=== PATIENT | male | born 1955 | race Hispanic/Latino ===

== ENCOUNTER → 2023-03-06 | Outpatient (CLI) | payer OTHER | END | disposition home or self-care (01) | LOC: RAH 14:11 | PROVIDERS: ATTEND Internal Medicine | DX: I10 Essential (primary) hypertension (principal) | CPT/HCPCS: 71046 ==

== ENCOUNTER → 2023-12-04 | Outpatient (CLI) | payer OTHER | END | disposition home or self-care (01) | LOC: RAH 15:11 | PROVIDERS: ATTEND Internal Medicine | DX: M19.079 Primary osteoarthritis, unspecified ankle and foot (principal) | CPT/HCPCS: 73600 ==

== ENCOUNTER 2024-06-17 14:18 | Emergency (ER) | payer OTHER ==
[~2024-06-17] VITALS: Ht 177.8 cm; Wt 65.8 kg
--- NOTE | 2024-06-17 14:41 | ERN ---
General Chief Complaint: Generalized Body Aches Stated Complaint: BODY ACHES Time Seen by MD: 14:23 History of Present Illness Initial Comments 69-year-old male brought in by EMS from [facility] does for generalized body aches. He reports he has a history of arthritis and fibromyalgia. Takes chronic oxycodone. He reports that he ran out now he is in pain all over. When I ask him where exactly his pain is he says his entire body. He reports he feels dizzy and weak. He denies any fevers or vomiting. Denies any chest pain. Denies shortness of breath. Denies diarrhea. He immediately is asking for an opiate pain medications on arrival to the ER. Allergies: Uncoded Allergies: ASPIRIN\ (Allergy, Unknown, 06/17/24) Past Medical History Past Medical History: Arthritis, Other Medical History Other: FIBROMYALGIA Past Surgical History: Other Surgical History Other: CARPAL TUNNEL, L KNEE. ROS Dictation CONSTITUTIONAL: pain all over HEAD/FACE: No signs of trauma. EENT: No eye pain, no blurred vision, no tearing, no double vision, no ear pain, no ear discharge, no nose pain, no nasal congestion, no throat pain, no throat swelling, no mouth pain. RESPIRATORY: No cough, no orthopnea, no SOB, no stridor, no wheezing. CARDIOVASCULAR: No chest pain, no edema, no palpitations, no syncope. GASTROINTESTINAL/ABDOMINAL: No abdominal pain, no constipation, no diarrhea, no nausea, no vomiting. GENITOURINARY: No abnormal discharge, no dysuria, no frequent urination, no hematuria. No complaints of pain in the genitals. MUSCULOSKELETAL: No back pain, no gout, no joint pain, no joint swelling, no muscle pain, no muscle stiffness, no neck pain. INTEGUMENTARY: No change in color, no change in hair/nails, no dryness, no lesion, no lumps, no rash. NEUROLOGICAL/PSYCH: No anxiety, not depressed, no emotional problem, no headache, no numbness, no pre-existing deficit, no history of seizures, no tremors, no weakness. HEMATOLOGIC/LYMPHATIC: Not anemic, no history of blood clots, no apparent bleeding, no bruising, glands not swollen. All Systems Negative, Except as Noted. Physical Exam Physical Exam Dictation VITAL SIGNS: Reviewed. GENERAL APPEARANCE: Alert, oriented x3, no acute distress HEAD AND FACE: Non-traumatic. EYES: PERRL, pink conjunctivas, eyelid no trauma, anterior chamber clear. EARS: Pinnas intact and no signs of trauma or erythema. Ear canals clear and no discharge. TMs no erythema. NOSE: No discharge, no bleeding. OROPHARYNX: Mouth normal, teeth no caries, tongue pink. Pharynx clear, no erythema. Tonsils no exudates, no abscesses noted. Mucous membrane moist. NECK: Supple, non-tender, no thyromegaly, no masses, no JVD, no bruits. BREAST: Deferred. CHEST: No tenderness, no crepitus, no paradoxical movement, no retractions. LUNGS: Clear, well-ventilated, symmetric, no rales, no wheezing, no rhonchi, no stridor, good breath sounds bilaterally. HEART: Regular rate, regular rhythm, no murmur, no gallops. VASCULAR: No peripheral edema. ABDOMEN: Soft, positive bowel sounds, nondistended, no guarding, nontender, no rebound, no masses no hepatomegaly, no splenomegaly, no Dietz's sign, no hernias. RECTAL: Deferred. GENITAL: Deferred. NEUROLOGICAL: Normal speech, gross motor function intact, gross sensory function intact. MUSCULOSKELETAL: Neck nontender, full range of motion, back nontender, full range of motion. EXTREMITIES: Nontender, full range of motion. SKIN: Color pink, dry, no turgor, no rash, no lacerations, no abrasions, no contusions. LYMPHATICS: Deferred. Results Laboratory and Microbiology Lab and Micro Result Laboratory Tests Test 06/17/24 14:54 06/17/24 14:55 White Blood Count 7.1 K/uL (4.8-10.8) Red Blood Count 4.84 MIL/uL (4.50-6.20) Hemoglobin 15.8 g/dL (14.0-18.0) Hematocrit 44.6 % (42-54) Mean Corpuscular Volume 92.1 fL (79-99) Mean Corpuscular Hemoglobin 32.6 pg (27.0-33.0) Mean Corpuscular Hemoglobin Concent 35.4 g/dL (32.0-36.0) Red Cell Distribution Width 13.3 % (11.0-15.5) Platelet Count 355 K/uL (130-400) Mean Platelet Volume 11.8 fL (7.5-10.5) H Immature Granulocyte % (Auto) 0.4 % (0-1) Neutrophils (%) (Auto) 81.9 % (40.0-77.0) H Lymphocytes (%) (Auto) 12.8 % (21.0-51.0) L Monocytes (%) (Auto) 4.3 % (3.0-13.0) Eosinophils (%) (Auto) 0.3 % (0.0-8.0) Basophils (%) (Auto) 0.3 % (0.0-5.0) Neutrophils # (Auto) 5.8 K/uL (1.8-7.7) Lymphocytes # (Auto) 0.9 K/uL (1.0-4.8) L Monocytes # (Auto) 0.3 K/uL (0.1-1.0) Eosinophils # (Auto) 0.02 K/uL (0.00-0.70) Basophils # (Auto) 0.02 K/uL (0.00-0.20) Absolute Immature Granulocyte (auto 0.03 K/uL (0-1) Nucleated Red Blood Cells 0.0 % (0.0-0.19) Sodium Level 136 mmol/L (136-145) Potassium Level 3.7 mmol/L (3.5-5.1) Chloride Level 97 mmol/L (101-111) L Carbon Dioxide Level 23 mmol/L (21-32) Blood Urea Nitrogen 22 mg/dL (7-18) H Creatinine 1.2 mg/dL (0.5-1.3) Glomerular Filtration Rate Calc 65 mL/min (>90) Random Glucose 105 mg/dL (70-105) Total Calcium 9.4 mg/dL (8.5-10.1) Total Bilirubin 1.2 mg/dL (0.2-1.0) H Direct Bilirubin 0.6 mg/dL (0.0-0.3) H Aspartate Amino Transf (AST/SGOT) 23 U/L (10-37) Alanine Aminotransferase (ALT/SGPT) 25 U/L (12-78) Alkaline Phosphatase 132 U/L (50-136) Total Creatine Kinase 43 U/L (21-232) Troponin I High Sensitivity 58.5 ng/L (4-75) Total Protein 7.3 g/dL (6.0-8.3) Albumin 3.7 g/dL (3.5-5.0) Lipase 67 U/L (16-77) Influenza Type A Antigen Negative For Type A Influenza Type B Antigen Negative For Type B SARS-CoV-2 Antigen (Rapid) PRESUMPTIVE NEGATIVE MDM CC: Generalized body aches Historian: Patient Comorbidities: Arthritis, fibromyalgia, chronic oxycodone use Limitations by social determinants of health: None Differential diagnosis: Flu, fibromyalgia, arthritis, drug-seeking behavior, other. vital signs: Stable, remained stable in the ER Labs ( independently ordered and interpreted by me ): CBC is normal. Metabolic panel is normal. Liver enzymes normal. Lipase normal. CK normal. Troponin normal. Flu and SARS negative. No imaging indicated. Treatment in ER: IV Toradol, p.o. Tylenol. I do not see any objective reason to give the patient opiates. He continually requests opiates. On re-evaluation he reports that his pain has a 10/10 in his all over. This point in time I think the patient was drug seeking. I do not see any objective medical abnormalities at this time. He was stable vital signs normal lab work. Normal physical exam. We will discharge the patient to follow up as an outpatient. ED Course Orders Procedure Category Date Status Time Cardiac Panel LAB 06/17/24 Complete 14:35 Cbc With Differential LAB 06/17/24 Complete 14:35 Basic Metabolic Panel LAB 06/17/24 Complete 14:35 Lipase LAB 06/17/24 Complete 14:35 Hepatic Function Panel LAB 06/17/24 Complete 14:35 12 Lead Ekg Tracing- EKG 06/17/24 Complete Technical 14:35 Covid19 (Sars Antigen LAB 06/17/24 Complete Rapid) 14:35 Influenza Type A & B, LAB 06/17/24 Complete Rapid 14:35 Ketorolac PHA 06/17/24 Complete Tromethamine 15mg/Ml 15:00 Acetaminophen 500mg PHA 06/17/24 Complete Tab (Tylenol 500mg T 15:00 Current Medications Medications (Trade) Dose Ordered Sig/Fidencio Route PRN Reason Start Time Stop Time Status Last Admin Dose Admin Acetaminophen (TYLenol 500MG TAB) 1,000 mg ONCE ONCE PO 06/17/24 15:00 06/17/24 15:01 DC 06/17/24 15:01 Ketorolac Tromethamine (toRADol) 15 mg ONCE ONCE IV 06/17/24 15:00 06/17/24 15:01 DC 06/17/24 15:01 Vital Signs Date Time Temp Pulse Resp B/P (MAP) Pulse Ox O2 Delivery O2 Flow Rate FiO2 06/17/24 14:20 97.9 72 18 148/65 98 Room Air 0 DX & DISP Disposition: Discharge Departure Impression: Primary Impression: Generalized pain Condition: Stable Additional Instructions: Your workup is unremarkable. Your vital signs are stable. Your blood work is normal. You can take [id number] pain medications as needed (800 mg of ibuprofen or 1000 mg of Tylenol). Regarding your opiate prescriptions, I recommend that you follow up with the primary provider. Referrals: DEONTE BEATTY MD (PCP) JONY NAVARRETE DO Jun 17, 2024 14:41
--- NOTE | 2024-06-17 14:56 | EKG ---
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
[2024-06-17 15:00] LABS: BASOPHILS # (AUTO) 0.02 K/uL (0.00-0.20); BASOPHILS % (AUTO) 0.3 % (0.0-5.0); EOSINOPHILS # (AUTO) 0.02 K/uL (0.00-0.70); EOSINOPHILS % (AUTO) 0.3 % (0.0-8.0); HEMATOCRIT 44.6 % (42-54); IMMATURE GRANULOCYTE ABSOLUTE 0.03 K/uL (0-1); LYMPHOCYTES # (AUTO) 0.9 K/uL (1.0-4.8); LYMPHOCYTES % (AUTO) 12.8 % (21.0-51.0); MEAN CORPUSCULAR HEMOGLOBIN 32.6 pg (27.0-33.0); MEAN CORPUSCULAR HGB CONC 35.4 g/dL (32.0-36.0); MEAN CORPUSCULAR VOLUME 92.1 fL (79-99); MONOCYTES # (AUTO) 0.3 K/uL (0.1-1.0); MONOCYTES % (AUTO) 4.3 % (3.0-13.0); NEUTROPHILS # (AUTO) 5.8 K/uL (1.8-7.7); NEUTROPHILS % (AUTO) 81.9 % (40.0-77.0); PLATELET COUNT (AUTO) 355 K/uL (130-400); RED BLOOD CELL COUNT(AUTO) 4.84 MIL/uL (4.50-6.20); RED CELL DISTRIBUTION WIDTH 13.3 % (11.0-15.5); WHITE BLOOD COUNT (AUTO) 7.1 K/uL (4.8-10.8)
[2024-06-17] MEDS: ketOROlac 15MG/ML VIAL (15MG/ML) IV ONE (15:01)
[2024-06-17] MEDS: acetaMINOPHEN 500 MG TABLET PO ONE (15:01)
[2024-06-17 15:08] LABS: CREATININE 1.2 mg/dL (0.5-1.3); POTASSIUM 3.7 mmol/L (3.5-5.1)
[2024-06-17 15:15] LABS: ALBUMIN 3.7 g/dL (3.5-5.0); BILIRUBIN,DIRECT 0.6 mg/dL (0.0-0.3); BILIRUBIN,TOTAL 1.2 mg/dL (0.2-1.0); TOTAL PROTEIN, SERUM 7.3 g/dL (6.0-8.3)
[2024-06-17 15:20] LABS: COVID19 (SARS ANTIGEN RAPID) PRESUMPTIVE NEGATIVE (NEGATIVE); INFLUENZA TYPE A Negative For Type A (NEGATIVE); INFLUENZA TYPE B Negative For Type B (NEGATIVE)
--- NOTE | 2024-06-17 16:40 | NUR ---
CALLED [facility] TO SET UP TRANSPORT FOR PT.
--- NOTE | 2024-06-17 17:13 | NUR ---
[facility] BY TO SOUND RECORDING TECHNICIAN PT.
[2024-06-17 17:34] VITALS: BP 158/79; PULSE 78; RESP 18; TEMP 97; O2SAT 97
== END 2024-06-17 17:40 | disposition home or self-care (01) ==
LOC: EDH 14:18
DX: M79.10 Myalgia, unspecified site (principal); M19.90 Unspecified osteoarthritis, unspecified site; Z88.6 Allergy status to analgesic agent; Z20.822 Contact with and (suspected) exposure to COVID-19
CPT/HCPCS: 99284; 96374; 87426; 82550; 80076; 84484; 80048; 83690; 85025; 87804 ×2; 36415; 93005; J1885

== ENCOUNTER 2024-06-20 18:27 | Emergency (ER) | payer MEDICARE, OTHER ==
[~2024-06-20] VITALS: Ht 177.8 cm; Wt 68.0 kg
--- NOTE | 2024-06-20 18:54 | ERN ---
ED Note History of Present Illness Stated Complaint: WEAKNESS Chief Complaint: Weakness Time Seen by MD: 18:45 Dictation: PATIENT IS A 69-YEAR-OLD MALE COMING IN VIA EMS FROM [facility] WITH COMPLAINTS OF GENERALIZED BODY WEAKNESS AND PAIN ALL OVER HIS BODY. HE HAS A HISTORY OF ARTHRITIS AND FIBROMYALGIA STATES HE NORMALLY TAKES OXYCODONE HOWEVER, HE RAN OUT SEVERAL DAYS AGO AND IS LOOKING FOR A REFILL. HE WAS HERE ON 06/18 FOR THE SAME REQUEST AND WAS DENIED, TOLD TO SEE HIS PRIMARY CARE DOCTOR, . HE THEN SAID THE DR. BEATTY HAD TOLD HIM TO COME TO THE HOSPITAL AND HE WOULD SEE HIM IN THE EMERGENCY ROOM. Allergies: Uncoded Allergies: ASPIRIN\ (Allergy, Unknown, 06/17/24) Past Medical History Past Medical History: Arthritis, Other Additional Past Medical Hx: FIBROMYALGIA Surgical History: Other Surgical History Other: CARPAL TUNNEL RN Note Reviewed/Agreed w/PFSH: Yes Review of System Dictation CONSTITUTIONAL: NEGATIVE EXCEPT FOR HPI WEAKNESS HEAD/FACE: NEGATIVE EXCEPT FOR HPI EENT: NEGATIVE EXCEPT FOR HPI RESPIRATORY: NEGATIVE EXCEPT FOR HPI GASTROINTESTINAL/ABDOMINAL: NEGATIVE EXCEPT FOR HPI GENITOURINARY: NEGATIVE EXCEPT FOR HPI MUSCULOSKELETAL: NEGATIVE EXCEPT FOR HPI DIFFUSE PAIN BILATERALLY INTEGUMENTARY: NEGATIVE EXCEPT FOR HPI NEUROLOGICAL/PSYCH: NEGATIVE EXCEPT FOR HPI HEMATOLOGIC/LYMPHATIC: NEGATIVE EXCEPT FOR HPI ALL SYSTEMS NEGATIVE, EXCEPT NOTED ABOVE. 13 POINT REVIEW OF SYSTEMS ASSESSED AND ALL NEGATIVE EXCEPT FOR ABOVE. Initial Vital Sign VS Vital Signs Date Time Temp Pulse Resp B/P (MAP) Pulse Ox O2 Delivery O2 Flow Rate FiO2 06/20/24 18:29 97.7 54 16 186/77 97 Room Air 0 Physical Exam Dictation VITAL SIGNS REVIEWED GENERAL APPEARANCE: ALERT, ORIENTED X 3, MODERATE ACUTE DISTRESS, WELL DEVELOPED, NOURISHED. HEAD AND FACE: NON-TRAUMATIC. EYES: PERRL, PINK CONJUNCTIVAS, EYELID NO TRAUMA, ANTERIOR CHAMBER WITH ARCUS SENILIS. EARS: PINNAS INTACT AND NO SIGNS OF TRAUMA OR ERYTHEMA EAR CANALS CLEAR AND NO DISCHARGE TM NO ERYTHEMA NOSE: NO DISCHARGE, NO BLEEDING. OROPHARYNX: MOUTH NORMAL, TONGUE PINK, PHARYNX CLEAR,NO ERYTHEMA, TONSILS NO EXUDATES, NO ABSCESSES NOTED, MUCOUS MEMBRANE MOIST NECK: SUPPLE, NON-TENDER, NO THYROMEGALY, NO MASSES, NO JVD, NO BRUITS BREAST:DEFERRED CHEST:NO TENDERNESS, NO CREPITUS, NO PARADOXICAL MOVEMENT, NO RETRACTIONS LUNGS:CLEAR, WELL-VENTILATED, SYMMETRIC, NO RALES, NO WHEEZING, NO RHONCHI, NO STRIDOR, GOOD BREATH SOUNDS BILATERALLY HEART: REGULAR RATE, REGULAR RHYTHM, NO MURMUR, NO GALLOPS VASCULAR: NO PERIPHERAL EDEMA, ABDOMEN: SOFT, POSITIVE BOWEL SOUNDS, NONDISTENDED, NO GUARDING, NONTENDER, NO REBOUND, NO MASSES NO HEPATOMEGALY, NO SPLENOMEGALY, NO GOODWIN'S SIGN, NO HERNIAS. RECTAL: DEFERRED GENITAL: DEFERRED NEUROLOGICAL: NORMAL SPEECH, MOTOR FUNCTION INTACT, SENSORY FUNCTION INTACT MUSCULOSKELETAL: NECK NONTENDER, FULL RANGE OF MOTION, BACK NONTENDER, FULL RANGE OF MOTION, EXTREMITIES: PATIENT HAS BILATERAL JOINT PAIN TO NECK SHOULDERS ELBOWS WRIST HIPS KNEES ANKLES ETC. SKIN: COLOR PINK, DRY, NO TURGOR, NO RASH, NO LACERATIONS, NO ABRASIONS, NO CONTUSIONS. LYMPHATIC: DEFERRED Results (Laboratory/Radiology) Labs Reviewed?: Yes ED Course ED Course Vital Signs Date Time Temp Pulse Resp B/P (MAP) Pulse Ox O2 Delivery O2 Flow Rate FiO2 06/20/24 18:29 97.7 54 16 186/77 97 Room Air 0 1845/CALLED DR IBRAHIM AND LEFT A VOICEMAIL FOR HIM TO CALL ME BACK. HE IS COVERING FOR . 1909 SPOKE WITH , HE SAID HE IS NOT ABLE TO PROVIDE ANY NARCOTICS AND THAT HE REFERRED PATIENT BACK TO . HE SAID UNTIL PATIENT TO SEE HIM IN THE MORNING. Medical Decision Making MDM MEDICAL DISCHARGE MAKING BASED ON EVALUATION OF PAIN PATIENT GIVEN TORADOL 60 MG IM TOLD TO FOLLOW BACK UP WITH HIS PRIMARY CARE DOCTOR, TOMORROW FOR PRESCRIPTION FOR OXYCODONE DX & DISP Disposition: Discharge Departure Impression: Primary Impression: Generalized pain Condition: Stable Additional Instructions: FOLLOW-UP WITH PRIMARY CARE PROVIDER IN 1 TO 2 DAYS. TAKE MEDICATIONS DIRECTED HERE IN THE EMERGENCY ROOM. OKAY TO CONTINUE HOME MEDICATIONS UNLESS OTHERWISE DISCUSSED DURING YOUR VISIT IN THE EMERGENCY ROOM TODAY. RETURN TO YOUR NEAREST EMERGENCY ROOM IF SYMPTOMS WORSEN OR IF THERE IS NO IMPROVEMENT. CALL 911 IF YOU NEED IMMEDIATE ASSISTANCE. TAKE TYLENOL OR MOTRIN [id number] NEEDED AND IF NO CONTRAINDICATIONS ARE PRESENT. INCREASE ORAL HYDRATION. A WOUND CULTURE OR URINE CULTURE WAS ORDERED HERE IN THE EMERGENCY ROOM DEPARTMENT PLEASE FOLLOW-UP WITH PRIMARY CARE PROVIDER AND ADVISE THEM TO GET REPEAT PORTS FROM OUR FACILITY. IF YOU HAD ANY RADHA WRAP/SPLINTS THAT WERE APPLIED HERE, PLEASE DO NOT REMOVE THEM UNTIL YOU SEE YOUR PRIMARY CARE OR SPECIALTY. SEE YOUR PRIMARY CARE DOCTOR TOMORROW FOR REFILL OF YOUR OXYCODONE Referrals: DEONTE BEATTY MD (PCP) Time of Disposition: 19:16 I have reviewed the case, and I agree with, Diagnosis and Plan TASNEEM BRIDGES NP Jun 20, 2024 18:54
[2024-06-20] MEDS: ketOROlac 60 MG VIAL (30MG/ML) IM ONE (19:26)
--- NOTE | 2024-06-20 19:31 | NUR ---
CALLED [facility] TO SET UP TRANSPORT FOR PT.
--- NOTE | 2024-06-21 03:16 | NUR ---
[facility] HERE FOR PATIENT
[2024-06-21 03:20] VITALS: BP 142/68; PULSE 68; RESP 20; TEMP 98.5; O2SAT 99
== END 2024-06-21 03:18 | disposition home or self-care (01) ==
LOC: EDH 18:27
DX: M25.511 Pain in right shoulder (principal); M25.512 Pain in left shoulder; M25.521 Pain in right elbow; M25.522 Pain in left elbow; M25.531 Pain in right wrist; M25.532 Pain in left wrist; M25.551 Pain in right hip; M25.552 Pain in left hip; M25.561 Pain in right knee; M25.562 Pain in left knee; M79.671 Pain in right foot; M79.672 Pain in left foot; M54.2 Cervicalgia; M19.90 Unspecified osteoarthritis, unspecified site; M79.7 Fibromyalgia; Z88.6 Allergy status to analgesic agent
CPT/HCPCS: 99283; 96372; J1885